=== PATIENT | male | born 1935 | race Caucasian/White ===

== ENCOUNTER 2018-11-23 08:52 | Inpatient (IN) | payer MEDICARE ==
[~2018-11-23] VITALS: Ht 172.7 cm; Wt 97.3 kg
[~2018-11-23 08:52] MED LIST: ACHD5005 PO; ACIDOPHILUS PROB1 MG PO; ALLO100T PO; ALPR.25T PO; ALPR0.25 PO; APIX2.5T PO; Azithromycin PO; BENEFIBER PO; CEFD300C PO; CELE200C PO; CHOL20002 PO; CYAN100014 SL; CYAN50006 SL; DICL100G18 TP; DIVA125C PO; DIVA125T3 PO; DOCU-143 PO; DOCU100C37 PO; DONE10TA41 PO; DONE10TA5 PO; DONE5TAB4 PO; Divalproex Sodium PO; ERGO500028 PO; FURO20TA4 PO; INDM25C PO; INDO25CA PO; INDO25CA15 PO; LISI10TA2 PO; LISI20TA PO; MELA1TAB10 PO; MELA1TAB20 PO; MELA300T PO; MEMA28CA PO; OLAN5TAB25 PO; OLAN5TAB67 PO; PANT40TA PO; POTA10CA43 PO; POTA10TA6 PO; PRAV10TA PO; RIVA1PAT TD; RIVA1PAT9 TD; SIME125T PO; Simethicone PO; TRAM50TA2 PO; Tramadol Hcl PO; VITAMIN B12 SL; WARF2.5T56 PO; WARF5TAB6 PO; WHEA236P PO; [UNRECOGNIZED DRUG - CODE] PO
[2018-11-23] MEDS ORDERED: morphine INJ 4 MG/ML 1 ML (VIAL/SYRINGE) ONE (10:20)
--- NOTE | 2018-11-23 10:29 | NUR ---
DARSHANA KIM admitted to room 422-1, with an admitting diagnosis of left hip fx, on 11/23/18 from [facility] , reported patient was from [facility] accompanied by EMS staff . family here upon arrival, DARSHANA KIM introduced to surroundings, call light, bed controls, phone, TV, temperature control, lights, meal times, smoking policy, visitor policy, side rail policy, bathrooms and showers. Patient Rights given to patient in the handbook. DARSHANA KIM verbalizes understanding that [facility] is not responsible for the loss or damage to any personal effects or valuables that are kept in the patients posession during their hospitalization. The following Patient Care Plans and discharge were discussed with the patient and family. DARSHANA KIM verbalizes understanding of Interdisciplinary Patient Education. Patient and family were informed about the Rapid Response Team and its purpose.
--- NOTE | 2018-11-23 10:38 | NUR ---
GAVE 2MG OF MORPHINE UNABLE TO DOCUMENT DECREASE DOSE FROM [employer] PULLED
[2018-11-23 12:00] VITALS: BP 140/87
[2018-11-23] MEDS ORDERED: ENOXAPARIN 40 MG/0.4 ML (LOVENOX) SYR SC ONE (13:30)
[2018-11-23] MEDS ORDERED: BISACODYL 10 MG SUPP (DULCOLAX) PR PRN (13:30)
[2018-11-23] MEDS ORDERED: ONDANSETRON 4 MG (ZOFRAN) ORAL DISSOLVE TAB PO PRN (13:30)
[2018-11-23] MEDS: NS IV 1000 ML 1,000 ML IV SCH (14:32)
[2018-11-23] MEDS: morphine INJ 4 MG/ML 1 ML (VIAL/SYRINGE) IV PRN (15:05)
[2018-11-23 15:50] VITALS: BP 140/87
[2018-11-23 16:00] VITALS: BP 123/77
[2018-11-23 17:11] VITALS: BP 123/77
[2018-11-23] MEDS: ACETAMINOPHEN 500 MG TAB (TYLENOL) PO SCH (18:05)
--- NOTE | 2018-11-23 18:27 | History & Physical-Hospitalist ---
History of Present Illness HPI/Chief Complaint Jose De Jesus Cardoza is an 83yoM with PMH HTN, AFib, Parkinson's disease, dementia, who presented from [facility] in [place] to the ER after falling at the [facility]. He is a poor historian but his family is present for the history. He is currently on hospice. They report that he was in his wheelchair at the [facility] and tried to stand up and fell to the floor. There was no head trauma. He was taken to the [place] ER where he was found to have a left subcapital hip fracture. They did not have an orthopedic surgeon and they requested a transfer. His family would like to have the hip fracture repaired surgically as a palliative procedure. They are worried that he will be too uncomfortable with everyday tasks like bathing and transporting. After the surgery, they would like to transition back to [facility] on hospice. He was currently being treated for a UTI and was on Omnicef since 11/20. Source: family Exam Limitations: other (dementia) Date Seen 11/23/18 Time Seen by a Provider: 13:00 Attending Physician Maxime Morales MD PCP Victoria Villa MD Referring Physician Date of Admission Nov 23, 2018 at 10:05 Home Medications & Allergies Home Medications Reviewed patient Home Medication Reconciliation performed by pharmacy medication reconciliations patient care technician and/or nursing. Patients Allergies have been reviewed. Allergies Allergies Coded Allergies Iodinated Contrast Media - IV Dye (Verified Allergy, Severe, 12/17/14) doxycycline (Verified Allergy, Severe, 12/17/14) perflutren (Verified Allergy, Severe, 12/17/14) Past Tsywmty-Iozbwx-Krolmm Hx Past Med/Social Hx: Reviewed Nursing Past Med/Soc Hx Patient Social History Alcohol Use: Denies Use Recreational Drug Use: No 2nd Hand Smoke Exposure: No Physical Abuse Screen: No Sexual Abuse: No Recent Foreign Travel: No Contact w/other who traveled: No Recent Hopitalizations: No Recent Infectious Disease Expo: No Immunizations Up To Date Tetanus Booster (TDap): Less than 5yrs Pediatric: No Date of Pneumonia Vaccine: Jun 27, 2010 Date of Influenza Vaccine: Jan 13, 2014 Seasonal Allergies Seasonal Allergies: No Past Medical History Surgeries: Appendectomy, Gallbladder, Prostatectomy Currently Using CPAP: No Currently Using BIPAP: No Cardiac: Atrial Fibrillation, Hypertension, Irregular Heartbeat Neurological: Dementia Reproductive: No Sexually Transmitted Disease: No HIV/AIDS: No Genitourinary: Prostate Problems, Renal Failure Gastrointestinal: Gastroesophageal Reflux, Irritable Bowel Musculoskeletal: Arthritis, Gout Loss of Vision: Denies Hearing Impairment: Hard of Hearing Cancer: Prostate, Skin Psychosocial: Anxiety History of Blood Disorders: No Adverse Reaction to Blood Adam: No Family History FH: atrial fibrillation G8 BROTHER G8 BROTHER FH: heart failure G8 BROTHER G8 SISTER G8 SISTER Heart Disease, Hypertension Review of Systems Constitutional: see HPI Physical Exam Physical Exam Vital Signs Vital Signs - First Documented 11/23/18 12:00 Temp 97.8 Pulse 96 Resp 18 B/P (MAP) 140/87 (104) Pulse Ox 97 O2 Delivery Room Air Capillary Refill : Less Than 3 Seconds Height, Weight, BMI Height: 5'8.00" Weight: 211lbs. 0.0oz. 95.348219pk; 32.9 BMI Method:Stated General Appearance: No Apparent Distress, Chronically ill HEENT: PERRL/EOMI, Pharynx Normal Neck: Normal Inspection, Supple Respiratory: Lungs Clear, Normal Breath Sounds, No Respiratory Distress Cardiovascular: No Murmur, Irregularly Irregular Gastrointestinal: Normal Bowel Sounds, Non Tender, Soft Back: Normal Inspection Extremity: Normal Inspection, Non Tender, Pedal Edema Neurologic/Psychiatric: Alert, Disoriented, Motor Weakness Skin: Normal Color, Warm/Dry Results Results/Procedures Labs Patient resulted labs reviewed. WBC 6.9 Hgb 14.1 Plt 254 Na 139 K 4.6 Bicarb 26 BUN 33 Cr 1.34 AST 18 ALT 6 ALP 74 TBili 0.5 Alb 3.5 Urine culture pending Imaging: Reviewed Imaging Report Imaging Left hip: Left subcapital hip fracture. Assessment/Plan Admission Diagnosis Closed left hip fracture Admission Status: Inpatient Order (span 2 midnights) Reason for Inpatient Admission: Ground level fall Atrial fibrillation Chronic kidney disease Urinary tract infection Assessment and Plan Closed left hip fracture Ground level fall -Left hip xrays revealed left subcapital hip fracture -Consulted orthopedic surgery, Dr. Keating, plan for surgery tomorrow -NPO at midnight -Pain meds and bowel regimen ordered -Lovenox given today, hold tomorrow for surgery -CBC/BMP/INR tomorrow prior to surgery Preoperative evaluation -Intermediate risk patient undergoing intermediate risk procedure -Plan to proceed with surgery due to urgent surgical need Urinary tract infection -Being treated with Omnicef since 11/20 -UA indicative of ongoing UTI on 11/23 -Transition from Omnicef to Rocephin while inpatient -Plan to obtain culture results from [facility] Parkinson's disease with dementia -Continue home meds: Namenda, Memantine, Depakote, Zyprexa Permanent atrial fibrillation -Not on rate/rhythm control or anticoagulation -Normal rate at this time -Continue to monitor Chronic kidney disease -Cr 1.34, likely CKD -Giving gentle IV fluids -Continue to monitor Diagnosis/Problems Diagnosis/Problems (1) Closed left hip fracture Status: Acute (2) Chronic atrial fibrillation Status: Chronic (3) Dementia Status: Chronic (4) Chronic kidney disease (CKD) stage G3a/A2, moderately decreased glomerular filtration rate (GFR) between 45-59 mL/min/1.73 square meter and albuminuria creatinine ratio between 30-299 mg/g Onset Date: 06/29/2014 Status: Chronic (5) Urinary tract infection Status: Acute Clinical Quality Measures DVT/VTE Risk/Contraindication: Risk Factor Score Per Nursin RFS Level Per Nursing on Admit: 4+=Very High MAXIME MORALES MD Nov 23, 2018 18:27
[2018-11-23 20:00] VITALS: BP 108/71
[2018-11-23] MEDS: ALLOPURINOL 100 MG (ZYLOPRIM) TAB PO SCH (21:00)
[2018-11-23] MEDS: DOCUSATE SODIUM 100 MG (COLACE) CAP PO SCH (21:00)
[2018-11-23] MEDS: SENNA W/DOCUSATE (SENOKOT S) TABLET PO SCH (21:00)
[2018-11-23] MEDS: OLANZapine 2.5 MG (ZyPREXA) TAB PO SCH (21:00)
[2018-11-23] MEDS: MEMANTINE 10 MG (NAMENDA) TABLET PO SCH (21:00)
[2018-11-23] MEDS: DIVALPROX SPRINKLE 125 MG (DEPAKOTE) CAP PO SCH (21:01)
[2018-11-23] MEDS: MELATONIN 3 MG TABLET PO SCH (21:01)
[2018-11-23] MEDS: POLYETHYLENE GLYCOL 17 GM (MIRALAX) PACK PO SCH (21:01)
[2018-11-24] VITALS (13 sets, daily range): BP systolic 95–136; BP diastolic 58–79
[2018-11-24] MEDS: NS IV 1000 ML 1,000 ML IV SCH ×2 (00:41→10:57)
[2018-11-24] MEDS: ACETAMINOPHEN 500 MG TAB (TYLENOL) PO SCH ×4 (00:42→17:41)
[2018-11-24] MEDS: morphine INJ 4 MG/ML 1 ML (VIAL/SYRINGE) IV PRN ×2 (03:45→09:06)
[2018-11-24 05:32] LABS: HEMOGLOBIN 11.8 G/DL (13.3-17.7); MEAN PLATELET VOLUME 9.2 FL (7.4-10.4); RED CELL DISTRIBUTION WIDTH 14.9 % (10.0-14.5)
[2018-11-24 05:46] LABS: INR 1.2 (0.8-1.4); PROTHROMBIN TIME PATIENT 15.4 SEC (12.2-14.7)
[2018-11-24 05:50] LABS: CALCIUM 8.2 MG/DL (8.5-10.1); CREATININE SERUM 1.41 MG/DL (0.60-1.30); POTASSIUM 4.7 MMOL/L (3.6-5.0)
[2018-11-24] MEDS ORDERED: RT-ALBUTEROL SULF 2.5 MG/3 ML PRE-MIX VIAL INH PRN (06:00)
[2018-11-24] MEDS ORDERED: RT-ALBUTEROL SULF 2.5 MG/3 ML PRE-MIX VIAL ONE (07:10)
[2018-11-24] MEDS ORDERED: LACTATED RINGERS 1,000 ML IV PRN (08:45)
[2018-11-24] MEDS: ALLOPURINOL 100 MG (ZYLOPRIM) TAB PO SCH ×2 (09:05→20:20)
[2018-11-24] MEDS ORDERED: DIVA-74 PO (10:22)
[2018-11-24] MEDS ORDERED: ONDA4TAB11 PO (10:22)
[2018-11-24] MEDS ORDERED: CARB1TAB22 PO (10:22)
[2018-11-24] MEDS ORDERED: LEVO25TA5 PO (10:22)
[2018-11-24] MEDS ORDERED: POTA10TA6 PO (10:22)
[2018-11-24] MEDS ORDERED: BISA10SU58 RC ×2 (10:22)
[2018-11-24] MEDS ORDERED: CHOL10007 PO (10:22)
[2018-11-24] MEDS ORDERED: LINA145C PO (10:22)
[2018-11-24] MEDS ORDERED: CEFD300C3 PO (10:22)
[2018-11-24] MEDS ORDERED: OLAN5TAB25 PO (10:22)
[2018-11-24] MEDS ORDERED: MULT-166 PO (10:22)
[2018-11-24] MEDS ORDERED: ACET-2840 PO (10:22)
[2018-11-24] MEDS ORDERED: MELA3TAB PO (10:22)
[2018-11-24] MEDS ORDERED: POLY17PO6 PO (10:22)
[2018-11-24] MEDS ORDERED: MEMA10TA22 PO (10:22)
[2018-11-24] MEDS ORDERED: MAGN400O7 PO (10:22)
[2018-11-24] MEDS ORDERED: ALPR0.5T7 PO (10:22)
[2018-11-24] MEDS ORDERED: DILT30TA PO (10:22)
[2018-11-24] MEDS ORDERED: MORP100S3 PO (10:22)
[2018-11-24] MEDS ORDERED: NF-NACL1GT PO (10:28)
[2018-11-24] MEDS ORDERED: HYOS-19 SL (10:28)
[2018-11-24] MEDS ORDERED: ACET650S15 RC (10:32)
--- NOTE | 2018-11-24 10:38 | NUR ---
MED REC WAS CONTINUED PRIOR TO MED REC TECH AVAILABILITY. I UPDATED IT WITH THE MAR FROM CATARINA CAPUTO ON THE PATIENTS CHART AND PASSED CHANGES ON TO PHARMACIST LADONNA FOR CLARIFICATIONS.
--- NOTE | 2018-11-24 11:11 | NUR ---
Palliative Care RN in to see patient and talk with family due to his having been on hospice prior to admission to the hospital. Found that the hospice was [facility] with intention to resume hospice care once he is discharge post surgery. Will follow in the hospital and offer support as needed
--- NOTE | 2018-11-24 11:51 | Progress Note - Hospitalist ---
Subjective HPI/CC On Admission Date Seen by Provider: Nov 24, 2018 Time Seen by Provider: 14:05 Jose De Jesus Cardoza is an 83yoM with PMH HTN, AFib, Parkinson's disease, dementia, who presented from [facility] in [place] to the ER after falling at the [facility]. He is a poor historian but his family is present for the history. He is currently on hospice. They report that he was in his wheelchair at the [facility] and tried to stand up and fell to the floor. There was no head trauma. He was taken to the [place] ER where he was found to have a left subcapital hip fracture. They did not have an orthopedic surgeon and they requested a transfer. His family would like to have the hip fracture repaired surgically as a palliative procedure. They are worried that he will be too uncomfortable with everyday tasks like bathing and transporting. After the surgery, they would like to transition back to [facility] on hospice. He was currently being treated for a UTI and was on Omnicef since 11/20. Subjective/Events-last exam Pt sitting in bed. No complaints but sitting and itching eyes. ROS unobtainable due to dementia. Family states that itching is new. Objective Exam Vital Signs Vital Signs Date Time Temp Pulse Resp B/P (MAP) Pulse Ox O2 Delivery O2 Flow Rate FiO2 11/24/18 11:38 98.6 103 18 113/76 (88) 93 Nasal Cannula 2.00 Capillary Refill : Less Than 3 Seconds General Appearance: No Apparent Distress, Chronically ill HEENT: Other (mild erythema surrounding under eyes) Respiratory: Lungs Clear, No Respiratory Distress Cardiovascular: No Murmur, Irregularly Irregular Neurologic/Psychiatric: Alert, Disoriented Results/Procedures Lab Laboratory Tests 11/24/18 05:10 Patient resulted labs reviewed. Imaging: Reviewed Imaging Report Assessment/Plan Assessment and Plan Assess & Plan/Chief Complaint Closed left hip fracture Ground level fall -Left hip x-rays revealed left subcapital hip fracture -Plan for the OR today per Ortho -Continue current pain regimen Preoperative evaluation -Intermediate risk patient undergoing intermediate risk procedure, defer ultimate decision to surgery regarding risk vs benefit Urinary tract infection - Continue Rocephin - Await cultures Parkinson's disease with dementia - Hospice diagnosis - Palliative care consulted, appreciate assistance - Plans to return to hospice upon discharge - Continue home meds Permanent atrial fibrillation -Continue home diltiazem, not on anticoagulation likely due to hospice enrollment Chronic kidney disease -Cr 1.34, likely CKD -Giving gentle IV fluids as is NPO -Continue to monitor Diagnosis/Problems Diagnosis/Problems (1) Chronic kidney disease (CKD) stage G3a/A2, moderately decreased glomerular filtration rate (GFR) between 45-59 mL/min/1.73 square meter and albuminuria creatinine ratio between 30-299 mg/g Onset Date: 06/29/2014 Status: Chronic (2) Chronic lung disease Status: Chronic (3) Hypertension Status: Chronic (4) Urinary tract infection Status: Acute (5) Dementia Status: Chronic (6) Chronic atrial fibrillation Status: Chronic (7) Closed left hip fracture Status: Acute Clinical Quality Measures DVT/VTE Risk/Contraindication: Risk Factor Score Per Nursin RFS Level Per Nursing on Admit: 4+=Very High ART GRAY MD Nov 24, 2018 11:51 am
[2018-11-24] MEDS ORDERED: ARTIFICIAL TEARS OINT (LACRI-LUBE) 3.5 GM TUBE OU PRN (12:00)
[2018-11-24] MEDS ORDERED: BUPIVACAINE 0.5% 30 ML (SENSORCAINE) VIAL ONE ×2 (12:24→13:38)
[2018-11-24] MEDS ORDERED: KETAMINE/NaCl 50 MG/5 ML SYRINGE ONE (12:45)
--- NOTE | 2018-11-24 12:45 | NUR ---
PATIENT TO SURGERY AT THIS TIME WITH SURGICAL STAFF.
[2018-11-24] MEDS: LACTATED RINGERS 1,000 ML IV PRN ×2 (12:50→14:00)
[2018-11-24] MEDS ORDERED: ceFAZolin INJECTION 2,000 MG ONE (13:08)
[2018-11-24] MEDS ORDERED: ceFAZolin INJECTION 1,000 MG VIAL IV ONE (13:15)
[2018-11-24] MEDS: MEMANTINE 10 MG (NAMENDA) TABLET PO SCH ×2 (13:18→20:35)
--- NOTE | 2018-11-24 13:28 | Progress Note ---
Standard Progress Note Progress Notes/Assess & Plan Date Seen by a Provider: Nov 24, 2018 Time Seen by a Provider: 13:05 Progress/Assessment & Plan 83 y/o male with h/o advanced dementia presents from [facility] with Left femoral neck fracture, no other injuries. Recommend operative fixation for better mobilization and pain control. Family agrees and has consented to proceed as planned. Questions answered. Full consult to follow. Focused Exam Respiratory: No Accessory Muscle Use, No Respiratory Distress Cardiovascular: Regular Rate, Rhythm, Normal Peripheral Pulses Skin: normal color, warm/dry Laboratory Tests 11/24/18 05:10 RUBÉN RAMÍREZ DO Nov 24, 2018 13:28
[2018-11-24] MEDS ORDERED: PHENYLEPHRINE 100 MCG/ML 10 ML (ANESTHESIA) SYR ONE (13:38)
[2018-11-24] MEDS ORDERED: proPOfol 200 MG/20 ML (DIPRIVAN) VIAL IV ONE (13:39)
--- NOTE | 2018-11-24 13:54 | NUR ---
NOTED THAT ON THIS RN'S MORNING ASSESSMENT THE LEFT OUT TOE HAD A SMALL SCABBED AREA OF CONCERN.
--- NOTE | 2018-11-24 14:20 | Progress Note-Post Operative ---
Post-Operative Progess Note Surgeon (s)/Traffic Coordinator (s) Surgeon RUBÉN RAMÍREZ DO Traffic Coordinator: Shahriar Calvin PA-C Pre-Operative Diagnosis Valgus impacted subcapital fracture Left femoral neck Post-Operative Diagnosis Same Procedure & Operative Findings Date of Procedure 11/24/18 Procedure Performed/Findings Closed reduction/internal fixation Left femoral neck fracture Anesthesia Type Spinal Estimated Blood Loss Estimated blood loss (mL): 25mL Specimens/Packing Specimens Removed None Specimens: None Complications: None Drains: None Disposition: tolerated the procedure well, transferred to PACU in stable condition Packing: None RUBÉN RAMÍREZ DO Nov 24, 2018 14:20
[2018-11-24] MEDS ORDERED: NON-FORMULARY MEDICATION 1 EA EA (Hyoscyamine Sulfate 0.125 MG) SL PRN (14:30)
[2018-11-24] MEDS ORDERED: NON-FORMULARY MEDICATION 1 EA EA (Simethicone (Gas-X) 125 MG) PO PRN (14:30)
[2018-11-24] MEDS ORDERED: MORPHINE SULFATE PO PRN (14:30)
[2018-11-24] MEDS ORDERED: KETOROLAC 15 MG/ML VIAL IV PRN (14:30)
[2018-11-24] MEDS ORDERED: BISACODYL 10 MG SUPP (DULCOLAX) RC PRN (14:30)
[2018-11-24] MEDS ORDERED: SIMETHICONE 80 MG (MYLICON) CHEW PO PRN (15:00)
[2018-11-24] MEDS ORDERED: HYOSCYAMINE 0.125 MG (LEVSIN) TAB SL PRN (15:00)
--- NOTE | 2018-11-24 15:06 | Diagnostic Imaging Report ---
INDICATION: Fluoroscopy for left hip surgery. FINDINGS: Fluoroscopy was performed in the OR during left hip pinning. 97 seconds of fluoroscopy was utilized. Images demonstrate three partially threaded screws extending through the left femoral neck. IMPRESSION: Fluoroscopy for left hip surgery. Dictated by: Dictated on workstation # [id number]
--- NOTE | 2018-11-24 15:25 | NUR ---
BACK TO FLOOR FROM SURGERY AT THIS TIME ACCOMPANIED BY DIANA DATA CODER OPERATOR. THIS RN WILL ASSUME CARE AT THIS TIME. FAMILY REMAINS AT BEDSIDE OF THIS PATIENT.
[2018-11-24] MEDS: KCL 10 MEQ TAB (MICRO K) PO SCH (15:36)
[2018-11-24] MEDS: FUROSEMIDE 20 MG (LASIX) TAB PO SCH (15:36)
[2018-11-24] MEDS: DIVALPROX SPRINKLE 125 MG (DEPAKOTE) CAP PO SCH ×2 (15:36→20:19)
[2018-11-24] MEDS: DONEPEZIL 5 MG (ARICEPT) TAB PO SCH (15:36)
[2018-11-24] MEDS: DOCUSATE SODIUM 100 MG (COLACE) CAP PO SCH ×2 (15:36→20:19)
[2018-11-24] MEDS: DILTIAZEM 30 MG (CARDIZEM) TAB PO SCH (20:18)
[2018-11-24] MEDS: ceFAZolin 2 GM IV Premixed 50 ML IV SCH (20:18)
[2018-11-24] MEDS: SENNA W/DOCUSATE (SENOKOT S) TABLET PO SCH (20:20)
[2018-11-24] MEDS: MELATONIN 3 MG TABLET PO SCH ×2 (20:21→20:29)
[2018-11-24] MEDS: OLANZapine 2.5 MG (ZyPREXA) TAB PO SCH (20:21)
[2018-11-24] MEDS: SINEMET 25/250 (CARBIDOPA/LEVODOPA) TAB PO SCH (20:28)
[2018-11-24] MEDS: ALPRAZolam 0.5 MG (XANAX) TAB PO SCH (20:28)
[2018-11-24] MEDS: POLYETHYLENE GLYCOL 17 GM (MIRALAX) PACK PO SCH (20:35)
[2018-11-25] VITALS (7 sets, daily range): BP systolic 108–146; BP diastolic 57–87
[2018-11-25] MEDS: NS IV 1000 ML 1,000 ML IV SCH ×2 (00:12→08:15)
[2018-11-25] MEDS: ACETAMINOPHEN 500 MG TAB (TYLENOL) PO SCH ×4 (00:12→17:39)
[2018-11-25] MEDS: morphine INJ 4 MG/ML 1 ML (VIAL/SYRINGE) IV PRN (03:10)
[2018-11-25] MEDS: ceFAZolin 2 GM IV Premixed 50 ML IV SCH (05:20)
[2018-11-25] MEDS: LEVOTHYROXINE 25 MCG (LEVOTHROID) TAB PO SCH (05:21)
[2018-11-25 06:01] LABS: HEMOGLOBIN 13.2 G/DL (13.3-17.7); MEAN PLATELET VOLUME 9.3 FL (7.4-10.4); RED CELL DISTRIBUTION WIDTH 15.2 % (10.0-14.5); WHITE BLOOD COUNT 11.3 10^3/uL (4.3-11.0)
[2018-11-25 06:17] LABS: CALCIUM 8.7 MG/DL (8.5-10.1); CREATININE SERUM 1.28 MG/DL (0.60-1.30); POTASSIUM 4.6 MMOL/L (3.6-5.0)
--- NOTE | 2018-11-25 08:16 | Consultation ---
History of Present Illness History of Present Illness Patient Consulted On(johanny/time) 11/25/18 08:11 Date Seen by Provider: Nov 24, 2018 Time Seen by Provider: 13:05 Reason for Visit: Left hip fracture History of Present Illness 83 y/o male with h/o advanced dementia presented to [facility] with CC of acute onset of severe Left hip pain that began subsequent to a mechanical GLF. Imaging studies demonstrated a valgus impacted fracture of the Left femoral neck. Orthopedic service consulted for definitive management of his injury. The patient did not sustained additional associated musculoskeletal injuries. Allergies and Home Medications Allergies Coded Allergies: Iodinated Contrast Media - IV Dye (Verified Allergy, Severe, 12/17/14) doxycycline (Verified Allergy, Severe, 12/17/14) perflutren (Verified Allergy, Severe, 12/17/14) Home Medications Acetaminophen 650 Mg Supp.rect, 650 MG RC Q4H PRN for PAIN-MILD OR TEMPATURE, (Reported) Allopurinol 100 Mg Tablet, 100 MG PO BID, (Reported) Alprazolam 0.5 Mg Tablet, 0.5 MG PO HS, (Reported) Bisacodyl 10 Mg Supp.rect, 10 MG RC Q72H, (Reported) Bisacodyl 10 Mg Supp.rect, 10 MG RC DAILY PRN for CONSTIPATION-4TH LINE, (Reported) Carbidopa/Levodopa 1 Each Tablet, 1 TAB PO TID, (Reported) Cefdinir 300 Mg Capsule, 300 MG PO BID, (Reported) 7 DAY SUPPLY START DATE 11-21-18 Cholecalciferol (Vitamin D3) 1,000 Unit Capsule, 2,000 UNIT PO DAILY, (Reported) Cyanocobalamin (Vitamin B-12) 5,000 Mcg/1 Ml Drops, 5,000 MCG SL DAILY, (Reported) Diltiazem HCl 30 Mg Tablet, 30 MG PO BID, (Reported) Divalproex Sodium 250 Mg Tablet.dr, 250 MG PO BID, (Reported) Docusate Sodium 100 Mg Capsule, 200 MG PO BID, (Reported) TAKES 2 (100MG) CAPSULES Furosemide 20 Mg Tablet, 20 MG PO DAILY, (Reported) Hyoscyamine Sulfate 0.125 Mg Tab.subl, 0.125 MG SL Q4H PRN for EXCESS SECRETIONS, (Reported) Indomethacin 25 Mg Capsule, 25 MG PO Q8H PRN for GOUT PAIN, (Reported) Levothyroxine Sodium 25 Mcg Tablet, 25 MCG PO DAILY, (Reported) Linaclotide 145 Mcg Capsule, 145 MCG PO DAILY, (Reported) Magnesium Hydroxide 400 Mg/5 Ml Oral.susp, 30 ML PO DAILY PRN for CONSTIPATION- 7TH LINE, (Reported) Melatonin 3 Mg Tablet, 6 MG PO HS, (Reported) Memantine HCl 10 Mg Tablet, 10 MG PO BID, (Reported) Morphine Sulfate 100 Mg/5 Ml Solution, 0.25 ML PO Q4H PRN for PAIN-SEVERE, (Reported) Multivitamin with Minerals 1 Each Tablet, 1 TAB PO DAILY, (Reported) Olanzapine 5 Mg Tablet, 2.5 MG PO HS, (Reported) TAKES 1/2 (5MG) TABLET Ondansetron 4 Mg Tab.rapdis, 4 MG PO Q4H PRN for NAUSEA/VOMITING-1ST LINE, (Reported) Polyethylene Glycol 3350 17 Gm Powd.pack, 17 GM PO DAILY PRN for CONSTIPATION- 2ND LINE, (Reported) Potassium Chloride 10 Meq Tablet.er, 10 MEQ PO MoWeFr, (Reported) Simethicone 125 Mg Tab.chew, 125 MG PO Q8H PRN for GAS, (Reported) Sodium Chloride 1 Gm Tab, 1 GM PO 1200, (Reported) Patient Home Medication List Home Medication List Reviewed: Yes Past Jxsssfp-Nqrjxk-Ngttyu Hx Past Med/Social Hx: Reviewed Nursing Past Med/Soc Hx Patient Social History Alcohol Use: Denies Use Recreational Drug Use: No 2nd Hand Smoke Exposure: No Recent Foreign Travel: No Contact w/Someone Who Travel: No Recent Infectious Disease Expo: No Recent Hopitalizations: No Immunizations Up To Date Tetanus Booster (TDap): Less than 5yrs PED Vaccines UTD: No Date of Pneumonia Vaccine: Jun 27, 2010 Date of Influenza Vaccine: Jan 13, 2014 Seasonal Allergies Seasonal Allergies: No Past Medical History Surgeries: Yes (PENILE IMPLANT, GENITOURINARY SPHINCTER, CYST ON ILEUM, GROWTH ON BILE DUCT) Appendectomy, Gallbladder, Prostatectomy Respiratory: Yes Sleep Apnea Currently Using CPAP: No Currently Using BIPAP: No Cardiac: Yes Atrial Fibrillation, Hypertension, Irregular Heartbeat Neurological: Yes Dementia Reproductive Disorders: No Sexually Transmitted Disease: No HIV/AIDS: No Prostate Problems, Renal Failure Gastrointestinal: Yes Gastroesophageal Reflux, Irritable Bowel Musculoskeletal: Yes (GENERALIZED WEAKNESS) Arthritis, Gout Endocrine: No Loss of Vision: Denies Hearing Impairment: Hard of Hearing Cancer: Yes Prostate, Skin Psychosocial: Yes Anxiety Integumentary: No Blood Disorders: No Adverse Reaction/Blood Tranf: No Family Medical History FH: atrial fibrillation G8 BROTHER G8 BROTHER FH: heart failure G8 BROTHER G8 SISTER G8 SISTER Heart Disease, Hypertension Review of Systems-General Constitutional: no symptoms reported EENTM: no symptoms reported Respiratory: no symptoms reported Cardiovascular: no symptoms reported Gastrointestinal: no symptoms reported Genitourinary: no symptoms reported Musculoskeletal: joint pain Skin: no symptoms reported Psychiatric/Neurological: Other Other dementia Physical Exam-General Problems Physical Exam Vital Signs Vital Signs - First Documented 11/23/18 12:00 Temp 97.8 Pulse 96 Resp 18 B/P (MAP) 140/87 (104) Pulse Ox 97 O2 Delivery Room Air Capillary Refill : Less Than 3 Seconds General Appearance: WD/WN, no apparent distress HEENT: PERRL/EOMI, normal ENT inspection Neck: non-tender, full range of motion, supple, normal inspection Respiratory: chest non-tender, no respiratory distress, no accessory muscle use Cardiovascular: normal peripheral pulses, regular rate, rhythm, no edema Peripheral Pulses: 2+ Dorsalis Pedis (R), 2+ Left Dors-Pedis (L) Gastrointestinal: non tender, soft Extremities: no pedal edema, no calf tenderness, other (LLE: shortened/e xternally rotated, pain with ROM, skin intact, all compartments soft/NT, motor/sensation grossly intact, foot well perfused) Assessment/Plan Assessment/Plan Admission Diagnosis/Plan 83 y/o male with valgus impacted fracture Left femoral neck secondary to mechanical GLF. Recommend operative fixation in order to facilitate adequate pain control and mobilization. Discussed risks/benefits with patient's family acting as POAs. All of their questions have been answered to their satisfaction. They have given informed written consent to proceed as planned. Laboratory Tests 11/25/18 05:30 Clinical Quality Measures DVT/VTE Risk/Contraindication: Risk Factor Score Per Nursin RFS Level Per Nursing on Admit: 4+=Very High RUBÉN RAMÍREZ DO Nov 25, 2018 08:16
[2018-11-25] MEDS: FUROSEMIDE 20 MG (LASIX) TAB PO SCH (08:38)
[2018-11-25] MEDS: ALLOPURINOL 100 MG (ZYLOPRIM) TAB PO SCH ×2 (08:38→21:14)
[2018-11-25] MEDS: DOCUSATE SODIUM 100 MG (COLACE) CAP PO SCH ×2 (08:38→21:13)
[2018-11-25] MEDS: DONEPEZIL 5 MG (ARICEPT) TAB PO SCH (08:38)
[2018-11-25] MEDS: SINEMET 25/250 (CARBIDOPA/LEVODOPA) TAB PO SCH ×3 (08:38→21:13)
[2018-11-25] MEDS: MEMANTINE 10 MG (NAMENDA) TABLET PO SCH ×2 (08:38→21:13)
[2018-11-25] MEDS: ENOXAPARIN 40 MG/0.4 ML (LOVENOX) SYR SC SCH (08:38)
[2018-11-25] MEDS: DIVALPROX SPRINKLE 125 MG (DEPAKOTE) CAP PO SCH ×2 (08:38→21:20)
[2018-11-25] MEDS: DILTIAZEM 30 MG (CARDIZEM) TAB PO SCH ×2 (08:38→21:19)
[2018-11-25] MEDS: SODIUM CHLORIDE 1 GM TAB (NON-FORMULARY) PO SCH (08:47)
[2018-11-25] MEDS ORDERED: ENOXAPARIN 30 MG/0.3 ML (LOVENOX) SYR SC SCH (09:00)
[2018-11-25] MEDS ORDERED: NON-FORMULARY MEDICATION 1 EA EA (Linaclotide (Linzess) 145 MCG) PO SCH (09:00)
--- NOTE | 2018-11-25 09:06 | Anesthesia-Regional Post-Op ---
Regional Patient Condition Mental Status: Alert, Oriented x3 Circulation: Same as Pre-Op Headache: Absent Sensation: Full Recovery Motor Block: Absent Post Op Complications Complications None Follow Up Care/Instructions Patient Instructions None needed. Anesthesia/Patient Condition Patient is doing well, no complaints, stable vital signs, no apparent adverse anesthesia problems. No complications reported per nursing. MADELYN SANCHEZ CRNA Nov 25, 2018 09:06
--- NOTE | 2018-11-25 09:51 | Physical Therapy Evaluation ---
PT Evaluation-General Medical Diagnosis Admission Date Nov 23, 2018 at 10:05 Medical Diagnosis: impacted left hip fracture Onset Date: Nov 23, 2018 Therapy Diagnosis Therapy Diagnosis: debility Height/Weight Height (Feet): 5 Height (Inches): 8.00 Weight (Pounds): 214 Weight (Ounces): 7.0 Precautions Precautions/Isolations: Fall Prevention, Standard Precautions Weight Bear Status Right Lower Extremity: Right Full Weight Bearing Left Lower Extremity: Left Weight Bearing/Tolerated Referral Physician: Rishabh Reason for Referral: Evaluation/Treatment Medical History Pertinent Medical History: Atrial Fib, Arthritis, Dementia, Heart Failure, HTN, Parkinson's, Prostate CA Additional Medical History patient is dependent with Addison lift PLOF Current History EMS secondary to fall at [place] Reviewed History: Yes Social History Home: Half-Way Prior/Core FIM Prior Level of Function Therapy Code Descriptions/Definitions Functional [place] Measure: 0=Not Assessed/NA 4=Minimal Assistance 1=Total Assistance 5=Supervision or Setup 2=Maximal Assistance 6=Modified [place] 3=Moderate Assistance 7=Complete [place] Therapy Quality Codes: 6 Independent with activity with or without an assistive device 5 Patient requires set up or clean up by helper. Patient completes activity by themselves 4 Supervision or touching assist (CGA). [place] provide cues , steadying assist 3 The helper provides less than half the effort to complete the activity 2 The helper provides more than half the effort to complete the activity 1 Dependent. The helper does all the effort to complete an activity 7 Patient refused to complete or attempt activity 9 The patient did not perform the activity before the current illness or injury 88 Not attempted due to Medical conditions or safety concerns Functional Abilities and Goals: Independent: Patient completed the activities by him/herself, with or without an assistive device, with no assistance from a helper. Needed Some Help: Patient needed partial assistance from another person to complete activities. Dependent: A helper completed the activities for the patient. Unknown: Not Applicable: Bed Mobility: 1 Transfers (B,C,W/C) (FIM): 1 Prior Devices Use: Mechanical lift PT Evaluation-Current Subjective Patient in bed and did not open eyes during PT evaluation. Pain Numeric Pain Scale: 0-No Pain Location: No Pain Reported Objective Patient Orientation: Non-Verbal/Aphasic Problem Solving: Poor ROM/Strength ROM Lower Extremities bilateral LE rigid due to Parkinson's and immobility PLOF Strength Lower Extremities 1/5 grossly (minimal active movement) Integumentary/Posture Integumentary refer to nursing notes Bowel Incontinence: Yes Bladder Incontinence: Yes Neuromuscular (Tone, Coordination, Reflexes) Advanced Parkinson's and dementia (dependent with all movement/mobility) Sensory Vision: Unable to Assess Hearing: Unable to Assess Sensation Right Lower Extremit: Impaired Sensation Left Lower Extremity: Impaired Transfers Therapy Code Descriptions/Definitions Functional [place] Measure: 0=Not Assessed/NA 4=Minimal Assistance 1=Total Assistance 5=Supervision or Setup 2=Maximal Assistance 6=Modified [place] 3=Moderate Assistance 7=Complete [place] Transfers (B, C, W/C) (FIM): 1 Scootin Rollin Addison Lift transfers for OOB activity (PLOF) Assessment/Needs 83 y.o. male, will be seen for ROM bilateral LE during hospital stay. Patient is on Hospice at [place] and is dependent with mechanical lift PLOF and with all bed mobility. Rehab Potential: Poor PT Short Term Goals Short Term Goals Time Frame: Nov 28, 2018 Transfers (B,C,W/C) (FIM): 1 Additional Short Term Goals PROM bilateral LE PT Plan Problem List Problem List: Activity Tolerance, Functional Strength, Safety, Transfer, Bed Mobility, ROM Treatment/Plan Treatment Plan: Continue Plan of Care Treatment Plan: Bed Mobility, Education, Therapeutic Exercise Treatment Duration: Nov 28, 2018 Frequency: 4 times per week Estimated Hrs Per Day: .25 hour per day Patient and/or Family Agrees t: Yes Discharge Recommendations Therapy D/C Recommendations: Half-Way Placement Time/GCodes Time In: 805 Time Out: 823 Total Billed Treatment Time: 18 [facility] Z[facility]ARIAH CANDELARIA PT Nov 25, 2018 09:51
--- NOTE | 2018-11-25 10:41 | NUR ---
Palliative Care RN in to see the patient. is at bedside and feeding the patient breakfast. He is not opening his mouth very well to accept the food but once the food is in mouth he appears to chew and swallow with out choking He was in a significantly reclined position and the daughter in the room suggested a more raised position which was appropriate. I was questioned on pain medications he will be on when discharge. Suggested it would depend on his pain level and needs...have not seen him up and he is not hollering in pain so he may not require much. Family reports that he was able to get up to w/c with x2 assist, shuffle gait. It was later learned that PT had seen him and it was reported from SNF that he was a Addison transfer. So likely there is not much pain to be made from PT. Will follow and offer support while preparing for discharge likely tomorrow.
--- NOTE | 2018-11-25 10:48 | Progress Note - Hospitalist ---
Subjective HPI/CC On Admission Date Seen by Provider: Nov 25, 2018 Time Seen by Provider: 08:45 Jose De Jesus Cardoza is an 83yoM with PMH HTN, AFib, Parkinson's disease, dementia, who presented from [facility] in [place] to the ER after falling at the custodial. He is a poor historian but his family is present for the history. He is currently on hospice. They report that he was in his wheelchair at the custodial and tried to stand up and fell to the floor. There was no head trauma. He was taken to the [place] ER where he was found to have a left subcapital hip fracture. They did not have an orthopedic surgeon and they requested a transfer. His family would like to have the hip fracture repaired surgically as a palliative procedure. They are worried that he will be too uncomfortable with everyday tasks like bathing and transporting. After the surgery, they would like to transition back to [facility] on hospice. He was currently being treated for a UTI and was on [facility]mn[facility] since 11/20. Subjective/Events-last exam Pt sitting up in bed with eye closed gettin pROM from PT. Does not respond to questions but alert. Family at bedside state he had a good night and pain seems controlled. Objective Exam Vital Signs Vital Signs Date Time Temp Pulse Resp B/P (MAP) Pulse Ox O2 Delivery O2 Flow Rate FiO2 11/25/18 10:12 124 93 11/25/18 10:12 Nasal Cannula 3.00 11/25/18 08:00 99.8 22 134/64 (87) Capillary Refill : Less Than 3 Seconds General Appearance: No Apparent Distress, Chronically ill Respiratory: Lungs Clear, No Respiratory Distress Cardiovascular: Regular Rate, Rhythm, No Murmur Extremity: Non Tender, No Pedal Edema Neurologic/Psychiatric: Alert, Disoriented Skin: Normal Color Results/Procedures Lab Laboratory Tests 11/25/18 05:30 Patient resulted labs reviewed. Imaging: Reviewed Imaging Report Assessment/Plan Assessment and Plan Assess & Plan/Chief Complaint Closed left hip fracture Ground level fall - POD #1 s/p repair - Continue current pain regimen - PT/OT - Lovenox Urinary tract infection - Continue Rocephin - Await cultures from [facility]- will request Parkinson's disease with dementia - Hospice diagnosis - Palliative care consulted, appreciate assistance - Plans to return to hospice upon discharge - Continue home meds Permanent atrial fibrillation -Continue home diltiazem, not on anticoagulation likely due to hospice enrollment Chronic kidney disease -Cr stable -Continue to monitor Diagnosis/Problems Diagnosis/Problems (1) Chronic kidney disease (CKD) stage G3a/A2, moderately decreased glomerular filtration rate (GFR) between 45-59 mL/min/1.73 square meter and albuminuria creatinine ratio between 30-299 mg/g Onset Date: 06/29/2014 Status: Chronic (2) Chronic lung disease Status: Chronic (3) Hypertension Status: Chronic (4) Urinary tract infection Status: Acute (5) Dementia Status: Chronic (6) Chronic atrial fibrillation Status: Chronic (7) Closed left hip fracture Status: Acute Clinical Quality Measures DVT/VTE Risk/Contraindication: Risk Factor Score Per Nursin RFS Level Per Nursing on Admit: 4+=Very High ART GRAY MD Nov 25, 2018 10:48 am
--- NOTE | 2018-11-25 11:36 | NUR ---
PALLIATIVE CARE RN called [facility] and spoke with a Tia. I wanted to talk to them about the differing information regarding patient's PLoF. It was reported that patient was able to stand himself up with the assist of 2 r/t being wobbly sometime. She mentioned that he was able to take a few steps using a walker and again with assist times 2 for wobbliness. Told her that he would be returning likely tomorrow but was unsure if family would elect hospice again or if they would like to try skilled to get him back to his PLoF.
--- NOTE | 2018-11-25 12:53 | OPERATIVE REPORT ---
DATE OF SERVICE: 11/24/2018 PREOPROCEDURE DIAGNOSIS: Valgus impacted fracture of left femoral neck, [place] type 1. POSTPROCEDURE DIAGNOSIS: Valgus impacted fracture of left femoral neck, [place] type 1. PROCEDURE: Closed reduction followed by internal fixation of valgus impacted fracture of left femoral neck. IMPLANTS USED: Three Synthes 7.3 mm cannulated screws with 32 mm threads. ATTENDING SURGEON: Dr. Rubén Ramírez. BLOOD BANK WORKER: Shahriar Calvin PA-C; MrElvira Calvin's assistance was required secondary to complexity of the case, to hold the necessary retractors protecting vital neurovascular and soft tissue structures and to increase the efficiency and efficacy of the case; this case would not have been possible without the presence of an family readiness support assistant. ANESTHESIA: Spinal. ESTIMATED BLOOD LOSS: 25 mL. COMPLICATIONS: None. SPECIMENS: None. DRAINS: None. FLUIDS: Per anesthesia record. BRIEF HISTORY AND INDICATIONS: The patient is an 83-year-old male, local assisted living resident with history of advanced dementia who on 11/23/2018 sustained a mechanical fall from a standing height, landing onto his left hip. He subsequently had severe left hip pain and inability to bear weight or ambulate on his left lower extremity. He was transferred to the [facility] Emergency Department for evaluation. Upon presentation, plain radiographs of the patient's left hip demonstrated a valgus impacted fracture of the left femoral neck. Orthopedic services were consulted for definitive management of his injury. I had a long discussion with the patient's family acting as POAs regarding the nature of this injury and indications for surgical fixation, so as to be able to mobilize the patient adequately without severe pain. I discussed the recommended treatment plan with the patient's family in detail including the risks, benefits, potential complications, expected outcomes, indications and alternatives. The patient's family acting as POAs, gave informed and written consent to proceed as planned after all of the questions were answered to their satisfaction. On exam, the patient had significant pain with any attempted range of motion of the left hip, his motor and sensory function was grossly intact. The skin was intact. There were no open wounds. The left foot was well perfused. There were no other musculoskeletal injuries. PROCEDURE NOTE: After correctly identifying the patient as the patient in the preoperative holding area and after his operative site was appropriately marked, he was transferred to the operating room. Once in the operating room, he had successful induction of spinal anesthesia then he was transferred to a radiolucent fracture table and placed in the supine position. All bony prominences were meticulously padded. Bilateral upper extremities were secured to the fracture table in a safe manner. The left operative extremity was placed in the fracture boot and then closed reduction maneuver was completed and preoperative C-arm imaging confirmed that the fracture was adequately aligned prior to proceeding with the case. The operative site was then prepped and draped in the routine sterile fashion. Prior to beginning the case, we completed an operating room timeout with all parties involved in the case and agreement and verified appropriate infusion of prophylactic antibiotics. Using a 10 blade scalpel, a small incision was made on the lateral aspect of the left hip, incising the skin and subcutaneous tissue. Bovie cautery was then used to dissect through the fascia of the IT band and the vastus lateralis to gain access to the proximal lateral femur. Three guidewires from the Synthes cannulated screw set were then placed into the femoral head and neck in the inverted triangle position. This was completed under fluoroscopic guidance. Once the pins were confirmed to be in appropriate position, we used the measuring device to measure for the length of the screws. The screws were then placed into the femoral head and neck over the guide pins and we achieved a very good purchase with all 3 screws. Final AP and lateral C-arm imaging confirmed all three screws were in very good position and that the fracture remained adequately aligned. The guide pins were then removed. The wound was then irrigated with copious amounts of sterile saline followed by standard closure of the wound subsequent to achieving adequate hemostasis. Closure was completed with 0 Vicryl for the deep fascia, 2-0 Vicryl for the subcutaneous tissue, and a running 4-0 Monocryl subcuticular stitch and Steri-Strips for the skin. The patient had a sterile dressing applied. Then, he was reversed from a spinal anesthesia without incident. He was then transferred to the PACU in stable condition. He tolerated the procedure quite well without complications. All counts were correct at the end of the case. Job ID: [id number] DocumentID: [id number] Dictated Date: 11/25/2018 08:01:25 Agricultural Equipment Sales Manager Date: 11/25/2018 12:52:05 Dictated By: RUBÉN RAMÍREZ
--- NOTE | 2018-11-25 13:30 | Occupational Therapy Eval ---
OT Evaluation-General/PLF Medical Diagnosis Admission Date Nov 23, 2018 at 10:05 Medical Diagnosis: impacted left hip fracture/hip sx Onset Date: Nov 23, 2018 Therapy Diagnosis Therapy Diagnosis: Weakness Height/Weight Height (Feet): 5 Height (Inches): 8.00 Weight (Pounds): 214 Weight (Ounces): 7.0 Precautions Precautions/Isolations: Fall Prevention, Standard Precautions Safety Interventions: Bed Exit Alarm, Reorient-PRN Referral Physician: Rishabh Referral Reason: Evaluation/Treatment Medical History Pertinent Medical History: Atrial Fib, Arthritis, Dementia, Heart Failure, HTN, Parkinson's, Prostate CA Additional Medical History Dementia Current History Pt. is resident on hospice at [place]. Pt. requires mechanical lift assistance. Pt. has dementia and Parkinsons. Fell at [place] and sustained hip fx. Family opted for repair for palliative care. Reviewed History: Yes Social History Home: [facility] Current Living Status: Entry Into Home: Level Entry ADL-Prior Level of Function Therapy Code Descriptions/Definitions Functional [place] Measure: 0=Not Assessed/NA 4=Minimal Assistance 1=Total Assistance 5=Supervision or Setup 2=Maximal Assistance 6=Modified [place] 3=Moderate Assistance 7=Complete [place] Therapy Quality Codes: 6 Independent with activity with or without an assistive device 5 Patient requires set up or clean up by helper. Patient completes activity by themselves 4 Supervision or touching assist (CGA). [place] provide cues , steadying assist 3 The helper provides less than half the effort to complete the activity 2 The helper provides more than half the effort to complete the activity 1 Dependent. The helper does all the effort to complete an activity 7 Patient refused to complete or attempt activity 9 The patient did not perform the activity before the current illness or injury 88 Not attempted due to Medical conditions or safety concerns Functional Abilities and Goals: Independent: Patient completed the activities by him/herself, with or without an assistive device, with no assistance from a helper. Needed Some Help: Patient needed partial assistance from another person to complete activities. Dependent: A helper completed the activities for the patient. Unknown: Not Applicable: ADL PLOF Comments Pt. is dependent with all ADL and mobility skills at [place]. Self Care: Dependent Functional Cognition: Unknown OT Current Status Subjective Pt. is not very verbal with this OT. Is able to answer some basic questions with one word, but otherwise demonstrates confusion. Appearance Pt. in bed with eyes closed. Requires cues to open eyes. Mental Status/Objective Patient Orientation: Confused ADL-Treatment Therapy Code Descriptions/Definitions Functional [place] Measure: 0=Not Assessed/NA 4=Minimal Assistance 1=Total Assistance 5=Supervision or Setup 2=Maximal Assistance 6=Modified [place] 3=Moderate Assistance 7=Complete [place] Therapy Quality Codes: 6 Independent with activity with or without an assistive device 5 Patient requires set up or clean up by helper. Patient completes activity by themselves 4 Supervision or touching assist (CGA). [place] provide cues , steadying assist 3 The helper provides less than half the effort to complete the activity 2 The helper provides more than half the effort to complete the activity 1 Dependent. The helper does all the effort to complete an activity 7 Patient refused to complete or attempt activity 9 The patient did not perform the activity before the current illness or injury 88 Not attempted due to Medical conditions or safety concerns Eating (FIM): 1 Transfers (B, C, W/C) (FIM): 1 OT came into pt's room after chart review to assess pt's needs. According to pt's chart, pt. is currently on hospice in [place] setting. He is dependent/max assist with all ADL skills. Pt. somewhat confused during OT interview. OT did assess pt's ROM. Performed gentle PROM to bilateral UE. Pt. allows OT to range shoulders and elbows to end range, and then states, that's enough. Pt. does verbalize being hungry, but will not hold or attempt to feed self with pudding that is in room. OT gives pt two small bites, and pt. verbalizes that he does not want anymore. Noted pt. incontinent of urine and required dependent assist x 2 to cleanse and change bedding. Dependent assist x 2 to roll in bed and re- position to comfort level. Due to pts previous phyical state in [place], and with pt. being on hospice care, OT is not warranted at this time to teach new functional skills. Education OT Patient Education: Correct positioning, Exercise program, Modified ADL techniques, Progress toward Goal/Update tx plan, Purpose of tx/functional activities, Reviewed precautions, Rehab process, Transfer techniques Teaching Recipient: Patient Teaching Methods: Demonstration, Discussion Response to Teaching: Unable to Comprehend OT Short Term Goals Short Term Goals Transfers (B,C,W/C) (FIM): 1 1=Demonstrate adherence to instructed precautions during ADL tasks. 2=Patient will verbalize/demonstrate understanding of assistive devices/modifications for ADL. 3=Patient will improve strength/tolerance for activity to enable patient to perform ADL's. OT Longterm Goals [place] Sk[place] Goals Time Frame: Nov 25, 2018 OT eval completed to assess skilled treatment needs. OT services not warranted at this time as pt. required max/dependent assistance previous to this hospitalization. 1=Demonstrate adherence to instructed precautions during ADL tasks. 2=Patient will verbalize/demonstrate understanding of assistive devices/modifications for ADL. 3=Patient will improve strength/tolerance for activity to enable patient to perform ADL's. OT Education/Plan Problem List/Assessment Assessment: Decreased Activ Tolerance, Decreased Safety Aware, Decreased UE Strength, Dependent Transfers, Impaired Bed Mobility, Impaired Cognition, Impaired Coordination, Impaired Funct Balance, Impaired I ADL's, Impaired Self- Care Skills, Restricted Funct UE ROM Discharge Recommendations Plan/Recommendations: Discontinue OT Therapy D/C Recommendations: 24 hr Supervision, [facility] Placement Treatment Plan/Plan of Care Treatment,Training & Education: Yes Treatment Duration: Nov 25, 2018 Frequency: 1 time per week Estimated Hrs Per Day: .25 hour per day Agreement: Yes Rehab Potential: Poor No further OT services Time/GCodes Start Time: 09:45 Stop Time: 10:00 Total Time Billed (hr/min): 15 Billed Treatment Time 1, [facility] Discharge from OT services at this time. LIO SNOWDEN OT Nov 25, 2018 13:30
[2018-11-25] MEDS: MELATONIN 3 MG TABLET PO SCH ×2 (21:13→21:16)
[2018-11-25] MEDS: ALPRAZolam 0.5 MG (XANAX) TAB PO SCH (21:13)
[2018-11-25] MEDS: OLANZapine 2.5 MG (ZyPREXA) TAB PO SCH (21:14)
[2018-11-25] MEDS: SENNA W/DOCUSATE (SENOKOT S) TABLET PO SCH (21:14)
[2018-11-25] MEDS: POLYETHYLENE GLYCOL 17 GM (MIRALAX) PACK PO SCH (21:16)
[2018-11-26] VITALS: BP 124/76
[2018-11-26] MEDS: ACETAMINOPHEN 500 MG TAB (TYLENOL) PO SCH ×3 (00:20→13:03)
[2018-11-26 04:38] VITALS: BP 138/81
[2018-11-26] MEDS: LEVOTHYROXINE 25 MCG (LEVOTHROID) TAB PO SCH (05:27)
[2018-11-26 05:35] LABS: HEMOGLOBIN 11.9 G/DL (13.3-17.7); MEAN PLATELET VOLUME 9.8 FL (7.4-10.4); RED CELL DISTRIBUTION WIDTH 14.9 % (10.0-14.5); WHITE BLOOD COUNT 11.5 10^3/uL (4.3-11.0)
[2018-11-26 05:56] LABS: CALCIUM 8.3 MG/DL (8.5-10.1); CREATININE SERUM 1.28 MG/DL (0.60-1.30)
--- NOTE | 2018-11-26 06:51 | NUR ---
PATIENT WAS ASLEEP AND WHEEZING SO PRN ALBUTEROL BT WAS GIVEN AT THIS TIME
[2018-11-26 08:00] VITALS: BP 112/65
[2018-11-26] MEDS: DIVALPROX SPRINKLE 125 MG (DEPAKOTE) CAP PO SCH (09:06)
[2018-11-26] MEDS: DOCUSATE SODIUM 100 MG (COLACE) CAP PO SCH (09:06)
[2018-11-26] MEDS: ALLOPURINOL 100 MG (ZYLOPRIM) TAB PO SCH (09:06)
[2018-11-26] MEDS: FUROSEMIDE 20 MG (LASIX) TAB PO SCH (09:06)
[2018-11-26] MEDS: DILTIAZEM 30 MG (CARDIZEM) TAB PO SCH (09:06)
[2018-11-26] MEDS: DONEPEZIL 5 MG (ARICEPT) TAB PO SCH (09:06)
[2018-11-26] MEDS: KCL 10 MEQ TAB (MICRO K) PO SCH (09:06)
[2018-11-26] MEDS: SINEMET 25/250 (CARBIDOPA/LEVODOPA) TAB PO SCH (09:07)
[2018-11-26] MEDS: ENOXAPARIN 40 MG/0.4 ML (LOVENOX) SYR SC SCH (09:07)
[2018-11-26] MEDS: MEMANTINE 10 MG (NAMENDA) TABLET PO SCH (09:07)
--- NOTE | 2018-11-26 09:12 | Physical Therapy Daily Note ---
PT Daily Note-Current Subjective Patient in bed pre tx, doesn't open eyes or talk, grimaces with pain occasionally. Appearance Patient in bed post tx with nurse call, phone, tray, pillow support for heels, nurse in room. Mental Status Patient Orientation: Unresponsive Attachments: Oxygen Transfers Therapy Code Descriptions/Definitions Functional [place] Measure: 0=Not Assessed/NA 4=Minimal Assistance 1=Total Assistance 5=Supervision or Setup 2=Maximal Assistance 6=Modified [place] 3=Moderate Assistance 7=Complete [place] Therapy Quality Codes: 6 Independent with activity with or without an assistive device 5 Patient requires set up or clean up by helper. Patient completes activity by themselves 4 Supervision or touching assist (CGA). [place] provide cues , steadying assist 3 The helper provides less than half the effort to complete the activity 2 The helper provides more than half the effort to complete the activity 1 Dependent. The helper does all the effort to complete an activity 7 Patient refused to complete or attempt activity 9 The patient did not perform the activity before the current illness or injury 88 Not attempted due to Medical conditions or safety concerns Weight Bearing Right Lower Extremity: Right Full Weight Bearing Left Lower Extremity: Left Weight Bearing/Tolerated Exercises BLE PROM Assessment Current Status: Poor Progress stiff LE's, patient resists some movement PT Short Term Goals Short Term Goals Time Frame: Nov 28, 2018 Transfers (B,C,W/C) (FIM): 1 PT Plan Problem List Problem List: Activity Tolerance, Functional Strength, Safety, Balance, Gait, Transfer, Bed Mobility, ROM Treatment/Plan Treatment Plan: Continue Plan of Care Treatment Plan: Bed Mobility, Education, Therapeutic Exercise Treatment Duration: Nov 28, 2018 Frequency: 4 times per week Estimated Hrs Per Day: .25 hour per day Patient and/or Family Agrees t: Yes Safety Risks/Education Patient Education: Correct Positioning, Safety Issues Teaching Recipient: Patient Teaching Methods: Demonstration, Discussion Response to Teaching: Reinforcement Needed Time/GCodes Time In: 0858 Time Out: 09 Total Billed Treatment Time: 12 Total Billed Treatment 1 visit EX AMOL BRIONES PT Nov 26, 2018 09:12
--- NOTE | 2018-11-26 10:48 | NUR ---
PALLIATIVE CARE RN in to see patient. He is alert and answers questions to his ability..which is limited. Asked how he is doing he said" not so good" asked him what was wrong and he replied my toe hurts". He has MELISSA hose on and and his right LE is edematous. I have spoken with PT about getting him up this morning. I let reported that he was able to get up prior to this hip fx, with assistance and actually uses walker to ambulate a few steps. I know they were told about his use of Addison lift but according to the facility and family he was not using this prior to his injury. The family would like him to return to his PLoF.
--- NOTE | 2018-11-26 11:29 | NUR ---
PALLIATIVE CARE RN in to see patient. Spoke with Kiley ABBOTT, who spoke with Kasey on the phone regarding discharge options for discharge. They have ultimately decided to be return to [facility] on skilled services for now to see if he can regain any of his previous ability. I will let [facility] know of this decision. He will transport via NON-Emergent EMS due to inability at this time to get out of bed.
--- NOTE | 2018-11-26 11:30 | Discharge Inst-Skilled Nursing ---
Discharge Inst-Skilled NF Chief Complaint Jose De Jesus Cardoza is an 83yoM with PMH HTN, AFib, Parkinson's disease, dementia, who presented from [facility] to the ER after falling at the [facility]. He is a poor historian but his family is present for the history. He is currently on hospice. They report that he was in his wheelchair at the [facility] and tried to stand up and fell to the floor. There was no head trauma. He was taken to the [place] ER where he was found to have a left subcapital hip fracture. They did not have an orthopedic surgeon and they requested a transfer. His family would like to have the hip fracture repaired surgically as a palliative procedure. They are worried that he will be too uncomfortable with everyday tasks like bathing and transporting. After the surgery, they would like to transition back to [facility] on hospice. He was currently being treated for a UTI and was on [facility] since 11/20. Consult/Follow Up/Orders Follow Up Appt.: With Dr Keating in 2 weeks. Skilled NF Admit to: [facility] Certification (SNF) I certify that SNF services are required to be given on an inpatient basis because of the above named patient's need for [facility] care on a continuing basis for the conditions(s) for which he/she was receiving inpatient hospital services prior to his/her transfer to the SNF. Senior Living Facility Order: Nursing Services, [employer]-Evaluate & Treat, Physical Therapy-Evaluate & Treat ([facility] ) Oxygen Delivery Method: Room Air Discharge Diet: No Restrictions New & Resume Previous Orders Art Castillo Nov 26, 2018 11:29 ART CASTILLO MD Nov 26, 2018 11:30 am
[2018-11-26 12:00] VITALS: BP 105/63
--- NOTE | 2018-11-26 12:14 | NUR ---
Patient was on 3 L and satting 95%; O2 was removed for 6 mins and RT went back to check on him and he was satting 79% on RA; O2 was added and it took 3 L to get patients O2 sat up to 90% and stay up. Patient needed 3 L at all times
[2018-11-26] MEDS ORDERED: OXC5T PO (12:44)
[2018-11-26] MEDS: SODIUM CHLORIDE 1 GM TAB (NON-FORMULARY) PO SCH (13:03)
[2018-11-26 14:35] VITALS: BP 105/63
--- NOTE | 2018-11-26 14:48 | Discharge Summary ---
Diagnosis/Chief Complaint Date of Admission Nov 23, 2018 at 10:05 am Date of Discharge Discharge Date: Nov 26, 2018 Admission Diagnosis Closed left hip fracture Discharge Diagnosis (1) Chronic kidney disease (CKD) stage G3a/A2, moderately decreased glomerular filtration rate (GFR) between 45-59 mL/min/1.73 square meter and albuminuria creatinine ratio between 30-299 mg/g Onset Date: 06/29/2014 Status: Chronic (2) Chronic lung disease Status: Chronic (3) Hypertension Status: Chronic (4) Urinary tract infection Status: Acute (5) Dementia Status: Chronic (6) Chronic atrial fibrillation Status: Chronic (7) Closed left hip fracture Status: Acute Discharge Summary Procedures/Consulations Dr Keating- Orthopedic Surgery Discharge Physical Exam Allergies: Coded Allergies: Iodinated Contrast Media - IV Dye (Verified Allergy, Severe, 12/17/14) doxycycline (Verified Allergy, Severe, 12/17/14) perflutren (Verified Allergy, Severe, 12/17/14) Vitals & I&Os Vital Signs Date Time Temp Pulse Resp B/P (MAP) Pulse Ox O2 Delivery O2 Flow Rate FiO2 11/26/18 12:00 98.0 90 16 105/63 (77) 94 Nasal Cannula 3.00 General Appearance: No Apparent Distress, Chronically ill Neurologic/Psychiatric: Alert, Disoriented Hospital Course Pt is an 83yoCM with a PMH of parkinson dementia on hospice who was direct admitted from [facility] following a fall at his care home. He was found to have a left hip fracture and underwent orthopedic repair on 11/24.. An uncomplicated postoperative course. Pain was controlled and he was seen by PT OT. He was on hospice for his dementia at time of admission but family elected revocation for operative repair. They would like to discharge back to care home with skilled therapy in hopes of maximizing functional status. He is follow-up with orthopedic surgery in 2 weeks and with his primary care doctor in the next week. Of note he was being treated for urinary tract infection prior to admission. This was continued while inpatient and he was transitioned back to [facility] for discharge. Labs (last 24 hrs) Laboratory Tests 11/26/18 04:45: White Blood Count 11.5H, Red Blood Count 3.89L, Hemoglobin 11.9L, Hematocrit 36L , Mean Corpuscular Volume 92, Mean Corpuscular Hemoglobin 31, Mean Corpuscular Hemoglobin Concent 33, Red Cell Distribution Width 14.9H, Platelet Count 201, Mean Platelet Volume 9.8, Sodium Level 138, Potassium Level 4.0, Chloride Level 105, Carbon Dioxide Level 23, Anion Gap 10, Blood Urea Nitrogen 32H, Creatinine 1.28, Estimat Glomerular Filtration Rate 53, BUN/Creatinine Ratio 25, Glucose Level 116H, Calcium Level 8.3L Microbiology 11/24/18 MRSA Screen - Final, Complete MRSA not isolated Patient resulted labs reviewed. Imaging: Reviewed Imaging Report Discussion & Recommendations Discharge Planning: >30 minutes discharge planning Discharge Home Medications: Active Scripts Active Oxyir Tablet (Oxycodone HCl) 5 Mg Tab 5 Mg PO Q4H PRN Reported Acetaminophen 650 Mg Supp.rect 650 Mg RC Q4H PRN Hyoscyamine Sulfate 0.125 Mg Tab.subl 0.125 Mg SL Q4H PRN Sodium Chloride 1 Gm Tab 1 Gm PO 1200 Ondansetron Odt (Ondansetron) 4 Mg Tab.rapdis 4 Mg PO Q4H PRN Miralax (Polyethylene Glycol 3350) 17 Gm Powd.pack 17 Gm PO DAILY PRN Morphine Conc. 20mg/ml (Morphine Sulfate) 100 Mg/5 Ml Solution 0.25 Ml PO Q4H PRN Milk of Magnesia (Magnesium Hydroxide) 400 Mg/5 Ml Oral.susp 30 Ml PO DAILY PRN Dulcolax (Bisacodyl) 10 Mg Supp.rect 10 Mg RC DAILY PRN Levothyroxine Sodium 25 Mcg Tablet 25 Mcg PO DAILY Dulcolax (Bisacodyl) 10 Mg Supp.rect 10 Mg RC Q72H Alprazolam 0.5 Mg Tablet 0.5 Mg PO HS Carbidopa-Levodopa 25-250 Tab (Carbidopa/Levodopa) 1 Each Tablet 1 Tab PO TID Memantine HCl 10 Mg Tablet 10 Mg PO BID Divalproex Sodium 250 Mg Tablet.dr 250 Mg PO BID Cefdinir 300 Mg Capsule 300 Mg PO BID 7 Days 7 DAY SUPPLY START DATE 11-21-18 Diltiazem HCl 30 Mg Tablet 30 Mg PO BID Multivitamins with Minerals (Multivitamin with Minerals) 1 Each Tablet 1 Tab PO DAILY Linzess (Linaclotide) 145 Mcg Capsule 145 Mcg PO DAILY Vitamin D3 (Cholecalciferol (Vitamin D3)) 1,000 Unit Capsule 2,000 Unit PO DAILY Melatonin 3 Mg Tablet 6 Mg PO HS Klor-Con 10 (Potassium Chloride) 10 Meq Tablet.er 10 Meq PO MOWEFR Olanzapine 5 Mg Tablet 2.5 Mg PO HS TAKES 1/2 (5MG) TABLET B-12 (Cyanocobalamin (Vitamin B-12)) 5,000 Mcg/1 Ml Drops 5,000 Mcg SL DAILY Colace (Docusate Sodium) 100 Mg Capsule 200 Mg PO BID TAKES 2 (100MG) CAPSULES Gas-X (Simethicone) 125 Mg Tab.chew 125 Mg PO Q8H PRN Allopurinol 100 Mg Tablet 100 Mg PO BID Furosemide 20 Mg Tablet 20 Mg PO DAILY Indomethacin 25 Mg Capsule 25 Mg PO Q8H PRN Instructions to patient/family Please see electronic discharge instructions given to patient. Clinical Quality Measures DVT/VTE Risk/Contraindication: Risk Factor Score Per Nursin RFS Level Per Nursing on Admit: 4+=Very High ART GRAY MD Nov 26, 2018 2:48 pm
== END 2018-11-26 14:35 | disposition hospice, home (50) | DRG 481 ==
LOC: 4TH 10:05
PROVIDERS: ADMIT Internal Medicine; ATTEND Family Medicine
PROC: 0QS704Z Reposition Left Upper Femur with Internal Fixation Device, Open Approach (ICD-10-PCS; principal; 2018-11-24 13:13)
DX: S72.012A Unspecified intracapsular fracture of left femur, initial encounter for closed fracture (principal); N39.0 Urinary tract infection, site not specified; I48.2 Chronic atrial fibrillation; I12.9 Hypertensive chronic kidney disease with stage 1 through stage 4 chronic kidney disease, or unspecified chronic kidney disease; N18.3 Chronic kidney disease, stage 3 (moderate); G20 Parkinson's disease; F02.80 Dementia in other diseases classified elsewhere, unspecified severity, without behavioral disturbance, psychotic disturbance, mood disturbance, and anxiety; Z66 Do not resuscitate; K21.9 Gastro-esophageal reflux disease without esophagitis; K58.9 Irritable bowel syndrome, unspecified; M19.91 Primary osteoarthritis, unspecified site; M10.9 Gout, unspecified; F41.9 Anxiety disorder, unspecified; Z85.46 Personal history of malignant neoplasm of prostate; Z85.828 Personal history of other malignant neoplasm of skin; Z90.79 Acquired absence of other genital organ(s); Y92.129 Unspecified place in nursing home as the place of occurrence of the external cause; W05.0XXA Fall from non-moving wheelchair, initial encounter
CPT/HCPCS: 36415; 80048; 85027; 85610; 87081; 94640; 94760; 94761